=== PATIENT | female | born 1950 | race Two or more races ===

== ENCOUNTER 2024-05-18 03:53 | Inpatient (IN) | payer MEDICARE, OTHER ==
[~2024-05-18] VITALS: Ht 152.4 cm; Wt 68.0 kg
[2024-05-18] MEDS ORDERED: MAGNESIUM HYDROXIDE 30 ML LIQUID UDC PO PRN ×2 (04:45→12:45)
[2024-05-18] MEDS ORDERED: QUETIAPINE FUMARATE 25 MG TABLET PO PRN (04:45)
[2024-05-18] MEDS ORDERED: ZOLPIDEM 5 MG TABLET PO PRN ×2 (04:45)
[2024-05-18] MEDS ORDERED: MAG HYDROX/AL HYDROX/SIMETH 30 ML LIQUID UDC PO PRN (04:45)
[2024-05-18] MEDS ORDERED: CHOL10005 PO (05:46)
[2024-05-18] MEDS ORDERED: LIDO30AD10 TD (05:46)
[2024-05-18] MEDS ORDERED: ATOR20TA PO (05:46)
[2024-05-18] MEDS ORDERED: METF-866 PO (05:46)
[2024-05-18] MEDS ORDERED: TRAZ-182 PO (05:46)
[2024-05-18] MEDS ORDERED: DIVA250T PO (05:46)
[2024-05-18] MEDS ORDERED: OLAN5TAB3 PO (05:46)
[2024-05-18] MEDS ORDERED: DOCU100C36 PO (05:46)
[2024-05-18 08:08] VITALS: BP 113/66; TEMP 97.5; O2SAT 97
[2024-05-18] MEDS ORDERED: NA P133E RC (09:08)
[2024-05-18] MEDS ORDERED: SENN8.6T19 PO (09:08)
[2024-05-18] MEDS ORDERED: MAGN400O6 PO (09:08)
[2024-05-18] MEDS ORDERED: DEXT38GE12 PO (09:08)
[2024-05-18] MEDS ORDERED: MULT-594 PO (09:08)
[2024-05-18] MEDS ORDERED: GLUC1KIT IM (09:08)
[2024-05-18] MEDS ORDERED: CHOL-35 PO (09:08)
[2024-05-18] MEDS ORDERED: METF-440 PO (09:08)
[2024-05-18] MEDS ORDERED: BISA10SU61 RC (09:08)
[2024-05-18] MEDS ORDERED: ACET-2154 PO (09:08)
[2024-05-18] MEDS ORDERED: BISACODYL 10 MG SUPP.RECT RC PRN (12:45)
[2024-05-18] MEDS ORDERED: LIDOCAINE 5% PATCH TD PRN (12:45)
[2024-05-18] MEDS ORDERED: FLEET ENEMA 133 ML BOTTLE RC PRN (12:45)
[2024-05-18] MEDS ORDERED: GLUCOSE ORAL GEL 15 GM TUBE PO PRN (12:45)
[2024-05-18] MEDS ORDERED: INSULIN REGULAR, HUMAN 300 UNITS/3 ML VIAL SQ PRN (14:30)
[2024-05-18] MEDS ORDERED: DEXTROSE 50% 50 ML DISP.SYRIN IV PRN (14:30)
[2024-05-18] MEDS: BLOOD SUGAR DIAGNOSTIC 1 EACH STRIP VI SCH (16:26)
[2024-05-18 16:27] VITALS: BP 104/65; TEMP 98.1; O2SAT 94
[2024-05-18] MEDS: INSULIN REGULAR, HUMAN 1000 UNIT/10 ML VIAL SQ PRN (16:27)
[2024-05-18 19:55] VITALS: BP 105/53; TEMP 98; O2SAT 95
[2024-05-18] MEDS: ATORVASTATIN 20 MG TABLET PO SCH (21:00)
[2024-05-18] MEDS: risperiDONE 0.5 MG TABLET PO SCH (21:00)
[2024-05-18] MEDS: DIVALPROEX 125 MG TABLET.DR PO SCH (21:00)
[2024-05-18] MEDS: DOCUSATE SODIUM 100 MG CAPSULE PO SCH (21:00)
[2024-05-19] MEDS: METFORMIN HCL 500 MG TABLET PO SCH (08:00)
[2024-05-19 08:04] VITALS: BP 121/72; TEMP 98.1; O2SAT 96
[2024-05-19] MEDS: MULTIVITAMINS,THERAPEUTIC TABLET PO SCH (08:19)
[2024-05-19] MEDS: CHOLECALCIFEROL 1,000 UNIT TABLET PO SCH (08:20)
[2024-05-19] MEDS ORDERED: Medication Not On Formulary EA (Multivitamins (Multivitamin) 1 EACH) PO SCH (09:00)
[2024-05-19 16:29] VITALS: BP 127/72; TEMP 98; O2SAT 100
[2024-05-19 20:09] VITALS: BP 129/71; TEMP 98.3; O2SAT 96
[2024-05-20 16:14] VITALS: BP 169/80; TEMP 97.5; O2SAT 97
[2024-05-20] MEDS: risperiDONE 1 MG TABLET PO SCH (20:47)
[2024-05-20] MEDS: TRAZODONE 50 MG TABLET PO SCH (20:48)
[2024-05-20] MEDS ORDERED: risperiDONE 0.5 MG TABLET PO SCH (21:00)
[2024-05-22 08:08] VITALS: BP 109/57; TEMP 98; O2SAT 94
[2024-05-22 16:20] VITALS: BP 112/75; TEMP 98.6; O2SAT 96
[2024-05-22] MEDS: ACETAMINOPHEN 325 MG TABLET PO PRN (21:08)
[2024-05-22 21:51] VITALS: BP 120/75; TEMP 98; O2SAT 97
[2024-05-23 08:23] VITALS: BP 118/55; TEMP 98.4; O2SAT 98
[2024-05-23] MEDS: DIVALPROEX 250 MG TABLET.DR PO SCH (13:15)
[2024-05-23] MEDS ORDERED: DIVALPROEX 125 MG TABLET.DR PO SCH (14:00)
[2024-05-23 15:51] VITALS: BP 130/90; TEMP 98.2; O2SAT 96
[2024-05-23 21:24] VITALS: BP 118/64; TEMP 98.5; O2SAT 98
[2024-05-24 08:08] VITALS: BP 104/55; TEMP 98.1; O2SAT 97
[2024-05-24] MEDS: PALIPERIDONE PALMITATE 234 MG/1.5 ML SYRINGE IM ONE (14:25)
[2024-05-24 16:10] VITALS: BP 148/67; TEMP 98.1; O2SAT 100
[2024-05-24 20:00] VITALS: BP 122/62; TEMP 97.9; O2SAT 95
[2024-05-25 07:52] VITALS: BP 119/64; TEMP 98; O2SAT 98
[2024-05-25 15:40] VITALS: BP 129/51; TEMP 98; O2SAT 98
[2024-05-25 20:00] VITALS: BP 140/84; TEMP 98.3; O2SAT 97
[2024-05-26 08:08] VITALS: BP 135/81; TEMP 97.5; O2SAT 100
[2024-05-26] MEDS: OLANZAPINE 10 MG VIAL IM PRN (09:06)
[2024-05-26 16:27] VITALS: BP 132/83; TEMP 98; O2SAT 100
[2024-05-26 20:12] VITALS: BP 113/56; TEMP 98.2; O2SAT 96
[2024-05-27 06:47] LABS: BASOPHILS % (AUTO) 0.6 % (0.0-2.0); EOSINOPHILS # (AUTO) 0.4 K/uL (0.0-0.7); EOSINOPHILS % (AUTO) 4.9 % (0.0-7.0); HEMATOCRIT 42.3 % (31.2-41.9); HEMOGLOBIN 14.5 g/dL (10.9-14.3); LYMPHOCYTES # (AUTO) 2.7 K/uL (0.8-4.8); LYMPHOCYTES % (AUTO) 34.4 % (20.5-51.5); MEAN CORPUSCULAR HEMOGLOBIN 31.4 uug (24.7-32.8); MEAN CORPUSCULAR HGB CONC 34 g/dL (32.3-35.6); MEAN CORPUSCULAR VOLUME 91.5 fL (75.5-95.3); MONOCYTES # (AUTO) 0.5 K/uL (0.1-1.30); MONOCYTES % (AUTO) 6.2 % (0.0-11.0); NEUTROPHILS # (AUTO) 4.3 K/uL (1.8-8.9); NEUTROPHILS % (AUTO) 53.9 % (38.5-71.5); PLATELET COUNT (AUTO) 226 K/uL (179-408); RED BLOOD CELL COUNT(AUTO) 4.63 MIL/uL (3.63-4.92); RED CELL DISTRIBUTION WIDTH 13.5 % (12.3-17.7)
[2024-05-27 06:59] LABS: ALANINE AMINOTRANSFERASE 22 U/L (14-59); ALBUMIN 3.4 g/dL (3.4-5.0); ALKALINE PHOSPHATASE 89 U/L (50-136); ASPARTATE AMINOTRANSFERASE 16 U/L (15-37); BILIRUBIN,TOTAL 0.6 mg/dL (0.2-1.0); CALCIUM 9.6 mg/dL (8.5-10.1); CARBON DIOXIDE 26 mmol/L (21-32); CHLORIDE 108 mmol/L (98-107); CREATININE 0.8 mg/dL (0.6-1.3); GLUCOSE 97 mg/dL (74-106); MAGNESIUM 1.8 mg/dL (1.8-2.4); POTASSIUM 3.7 mmol/L (3.5-5.1); SODIUM SERUM 145 mmol/L (136-145); TOTAL PROTEIN, SERUM 7.5 g/dL (6.4-8.2); UREA NITROGEN, BLOOD 18 mg/dL (7-18)
[2024-05-27 07:01] LABS: DIFFERENTIAL COMMENT 1
[2024-05-27 08:10] VITALS: BP 130/83; TEMP 98.6; O2SAT 97
[2024-05-27] MEDS ORDERED: OLANZAPINE 10 MG VIAL IM PRN (10:30)
[2024-05-27 20:12] VITALS: BP 126/78; TEMP 98.2; O2SAT 96
[2024-05-27] MEDS: risperiDONE 2 MG TABLET PO SCH (20:40)
[2024-05-28 08:10] VITALS: BP 130/77; TEMP 98.2; O2SAT 96
[2024-05-28 16:42] VITALS: BP 118/67; TEMP 98; O2SAT 98
[2024-05-28 19:58] VITALS: BP 105/50; TEMP 98.1; O2SAT 97
[2024-05-29 07:55] VITALS: BP 142/79; TEMP 98; O2SAT 96
[2024-05-29] MEDS: DIVALPROEX 250 MG TABLET.DR PO SCH (14:32)
[2024-05-29 15:19] VITALS: BP 118/72; TEMP 98; O2SAT 96
[2024-05-29 20:00] VITALS: BP 114/76; TEMP 97.8; O2SAT 96
[2024-05-29] MEDS: risperiDONE 1 MG TABLET PO SCH (20:57)
[2024-05-30 07:45] VITALS: BP 97/51; TEMP 98; O2SAT 96
[2024-05-30] MEDS: risperiDONE 2 MG TABLET PO SCH (09:01)
[2024-05-30] MEDS: PALIPERIDONE PALMITATE 156 MG/ML SYRINGE IM ONE (14:21)
[2024-05-30 15:15] VITALS: BP 124/75; TEMP 98; O2SAT 98
[2024-05-30 20:00] VITALS: BP 94/60; TEMP 97.8; O2SAT 98
[2024-05-30 20:21] VITALS: BP 124/63
[2024-05-31 07:39] VITALS: BP_SYST 104; BP_SYST 109; BP_DIAS 59; BP_DIAS 70; TEMP 98; TEMP 98.2; O2SAT 98; O2SAT 99
[2024-05-31 15:32] VITALS: BP 101/55; TEMP 98; O2SAT 100
[2024-05-31 20:00] VITALS: BP 108/69; TEMP 97.8; O2SAT 97
[2024-06-01 07:33] VITALS: BP 95/49; TEMP 98; O2SAT 99
[2024-06-01 15:02] VITALS: BP 126/67; TEMP 98; O2SAT 96
[2024-06-01 20:48] VITALS: BP 131/51; TEMP 98; O2SAT 92
[2024-06-02 08:10] VITALS: BP 114/56; TEMP 97.6; O2SAT 100
[2024-06-02 16:37] VITALS: BP 113/64; TEMP 98.3; O2SAT 97
[2024-06-02 20:20] VITALS: BP 112/60; TEMP 98.1; O2SAT 96
[2024-06-03 08:10] VITALS: BP 103/47; TEMP 98.1; O2SAT 96
== END 2024-06-03 13:45 | DRG 885 ==
LOC: GPS 03:54
PROVIDERS: ADMIT Psychiatry & Neurology Psychiatry; ATTEND Student in an Organized Health Care Education/Training Program
DX: F20.0 Paranoid schizophrenia (principal); E11.9 Type 2 diabetes mellitus without complications; E78.5 Hyperlipidemia, unspecified; F25.9 Schizoaffective disorder, unspecified; M15.9 Polyosteoarthritis, unspecified; Z91.148 Patient's other noncompliance with medication regimen for other reason; Z88.2 Allergy status to sulfonamides; Z88.8 Allergy status to other drugs, medicaments and biological substances; F32.A Depression, unspecified
CPT/HCPCS: 36415; 80164; 83735; 84443; 85025; J1815; J2358; J2426; J3490